=== PATIENT | male | born 1975 | race Hispanic/Latino ===

== ENCOUNTER 2016-12-04 01:39 | Emergency (ER) | payer BC, SELFPAY | END 2016-12-04 04:02 | disposition home or self-care (01) | LOC: ERS 01:39 | DX: K21.9 Gastro-esophageal reflux disease without esophagitis (principal) | CPT/HCPCS: 99282 ==

== ENCOUNTER 2017-06-13 15:35 | Outpatient (CLI) | payer BC ==
--- NOTE | 2017-06-13 16:59 | CT ---
CT NECK WITHOUT CONTRAST: 06/13/17 HISTORY: Subglottic stenosis. COMPARISON: None. TECHNIQUE: Noncontrast soft tissue neck CT is performed in the axial plain. Reformatted images are submitted for interpretation. FINDINGS: The visualized brain parenchyma is unremarkable. Adequate aeration of the sinuses and mastoid air ulises ls. There is evidence of previous surgery at the level of the left maxillary sinus. Aerodigestive tract is patent. There is no mucosal abnormality. No obvious masses in the oral cavity. Evaluation is limited by dental amalgam artifact. Midline fatty raphae of the tongue is preserved. E piglottis has a normal caliber. Pre-epiglottic fat is preserved. The supraglottic, glottic and subglo ttic larynx is unremarkable. No evidence of high grade stenosis. There is some narrowing of the airwa y at the level of the true vocal cords, nonspecific. There is no associated mass. Anterior commissure is unremarkable. No evidence of lymphadenopathy by size criteria. Symmetric attenuation of the sternocleidomastoid mus cles. There is appropriate attenuation of the submandibular and parotid gland. The thyroid gland is u nremarkable. Cervical spine vertebral body height is maintained. No fracture. Varying degrees of stenosis and fora wade narrowing. Upper mediastinum and lung apices are unremarkable. IMPRESSION: Unremarkable noncontrast soft tissue neck CT. No obvious mass in the subglottic airway. Mild narrowin g of the airway at the level of the true vocal cords is nonspecific. POS: [facility]
== END 2017-06-13 15:36 | disposition home or self-care (01) ==
LOC: SCSCT 15:35
PROVIDERS: ATTEND Specialist
DX: J38.6 Stenosis of larynx (principal); J98.8 Other specified respiratory disorders
CPT/HCPCS: 70490